=== PATIENT | male | born 1935 | race Caucasian/White ===

== ENCOUNTER 2018-07-13 08:16 | Observation (INO) | payer MEDICARE, OTHER ==
[~2018-07-13] VITALS: Ht 180.3 cm; Wt 55.4 kg
[~2018-07-13 08:16] MED LIST: ACETAMINOPHEN325 M1 PO; ASPIRIN EC81 MG PO; BUPROPION HCL100 M1 PO; BUPROPION XL150 MG PO; CENTRUM SILVER1 EAC3 PO; IBUPROFEN400 MG PO; NORCO 5-325 TA1 EACH PO; SPIRIVA18 MCG INH
[2018-07-13] MEDS ORDERED: MEMANTINE HCL5 MG PO (08:37)
[2018-07-13] MEDS ORDERED: VITAMIN D1000 UNIT PO (08:37)
[2018-07-13] MEDS ORDERED: LIPITOR10 MG PO (08:38)
--- NOTE | 2018-07-13 13:15 | NUR ---
NEW ADMIT TO THE FLOOR. PT ALERT AND ORIENTED TO PERSON/PLACE, UNABLE TO TELL ME DATE/TIME. PT ABLE TO SPEAK APPROPRIATELY. PT DENIES PAIN. HOB ELEVEATED. NEURO DEFICITS TO RIDE SIDE, WEAKNESS NOTED WELL SLIGHT SIDED FACIAL DROOP. PT DENIES NEEDS. ORIENTED PT TO CALL LIGHT AND ROOM. CALL LIGHT WITHIN REACH OF PT. PERSONAL SUPPLIES AND CALL LIGHT WITHIN REACH OF PT.
[2018-07-13] MEDS ORDERED: BUPROPION HCL100 M1 PO (14:42)
[2018-07-13] MEDS ORDERED: MEMANTINE HCL10 MG PO (14:42)
[2018-07-13] MEDS ORDERED: ACETAMINOPHEN-1 EACH PO (14:49)
--- NOTE | 2018-07-13 14:49 | NUR ---
MED REC COMPLETE
--- NOTE | 2018-07-13 16:12 | NUR ---
PT LEFT UNIT TO GO TO DI FOR A CT SCAN.
--- NOTE | 2018-07-13 16:25 | NUR ---
PT IS ALERT AND ORIENTED X2. PT IS ON RA, CPOX INTACT, SAT LEVEL 93%+. PT DENIES PAIN. PT IS 1PA WITH CANE TO CHAIR. NOTABLE RIGHT SIDED WEAKNESS/FACIAL DROOP. SPEECH INTACT AND RESPONDS APPROP. PT TOLERATING PO INTAKE. NS CONTINUOUS @ 125ML/HR. PT/OT WORKED WITH PT. FALL AT HOME THIS ADMIT. VSS. PT CONFUSED TO SITUATION AT TIMES. BED/CHAIR ALARM INTACT.
--- NOTE | 2018-07-13 17:37 | NUR ---
PT SITTING UP IN CHAIR READING NEWSPAPER. HOB ELEVATED. PT DENIES PAIN. PT TOLERATED DINNER WELL. LOWER EXT ELEVATED. CONT PULSE OX INTACT, SAT LEVEL 97% ON RA. PT DENIES NEEDS AT THIS TIME. PT DENIES NEED TO VOID. PERSONAL SUPPLIES AND CALL LIGHT WITHIN PT REACH. CHAIR ALARM INTACT.
--- NOTE | 2018-07-13 19:18 | NUR ---
SHIFT REPORT RECEIVED FROM DAY SHIFT RN IN [facility]. PT IN BED, RESPIRATIONS WNL. DR CHAVEZ IN ROOM WITH PT. CALL LIGHT WITHIN REACH.
--- NOTE | 2018-07-13 20:00 | NUR ---
PT CONFUSED, DISORIENTED TO PLACE, TIME, EVENT, ATTEMPTING TO GET OUT OF BED, STATING "I HAVE TO GO AND FIND MY ", CALLED ON THE PHONE, PT COMMUNICATED WITH , QUESTIONS ANSWERED, REASSURANCE GIVEN, THIS RN TO STAY IN ROOM WITH PT, PT NEEDS FREQUENT REORIENTATION, BED ALARM ON, FALL PRECAUTIONS IN PLACE. PT DENIES SOB, DENIES PAIN, DENIES NEED TO VOID. NO NEEDS AT THIS TIME.
--- NOTE | 2018-07-13 20:50 | EKG ---
[facility] [address] [facility] [place] [address] Signed Sinus rhythm with marked sinus arrhythmia Left axis deviation Nonspecific ST abnormality Abnormal ECG No previous ECGs available Confirmed by ELVIN CHAVEZ MD ([id number]) on 07/13/2018 8:50:24 PM Electronically Signed By: ELVIN CHAVEZ MD 07/13/182049 PATIENT NAME: PATRICA WALLACE Electrocardiogram DATE OF : 35 PHYSICIAN: ELVIN CHAVEZ MD REPORT #: [id number] REPORT IS CONFIDENTIAL AND NOT TO BE RELEASED WITHOUT AUTHORIZATION
--- NOTE | 2018-07-13 21:00 | NUR ---
PT APPEARS TO BE ASLEEP IN BED, BREATHS EVEN, UNLABORED, BED ALARM ON, FALL PRECAUTIONS IN PLACE, NO NEEDS AT THIS TIME. PT VISIBLE FROM NURSES STATION. CALL LIGHT WITHIN REACH.
--- NOTE | 2018-07-13 22:40 | NUR ---
PT AWAKE, CONFUSED, DISORIENTED TO PLACE, TIME, CONTINUES TO ASK FOR HIS , PT INCONTINENT OF URINE, PT ASSISTED TO BATHROOM WITH 2PA/FWW. ATTENDS CHANGED, BEDDING CHANGED. PT BACK TO BED NOW. CONTINUES TO ASK QUESTIONS ABOUT HIS , ATTEMPTING TO GET OUT OF BED. THIS RN IN PT'S ROOM. REORIENTATION PROVIDED, REASSURANCE GIVEN, QUESTIONS ANSWERED. BED ALARM ON. FALL PRECAUTIONS IN PLACE, NO NEEDS AT THIS TIME. IV FLUIDS INFUSING PER EMAR WNL.
--- NOTE | 2018-07-13 22:49 | NUR ---
ASSISTED PATIENT UP TO THE BATHROOM. 2PA. PATIENT HAS SOME TREMOR LIKE MOVEMENTS IN HIS ARMS, BUT LEGS ARE MOSTLY STABLE WITH SOME WEAKNESS. FWW USED WELL. PATIENT HAD LARGE SATURATED ATTENDS AND PASSED GAS. NO BM. INCONTINENCE CAUSED PATIENT A GREAT DEAL OF SHAME AND EMBARRASSMENT BUT HE MOSTLY ALLOWES STAFF TO ASSIST HIM. FRESH GOWN AND LINEN PROVIDED. PATIENT RETURNED TO BED AND IS RESTING NOW. HE FREQUENTLY ASK FOR HIS CLOTHES TO GO HOME AND IS CONCERNED ABOUT HIS . POWER AUGUSTE 1:1 WITH PATIENT TO PROVIDE REASSURANCE AND SAFETY.
--- NOTE | 2018-07-13 23:10 | NUR ---
PT 2PA WITH FWW TO BATHROOM TO VOID, AFTER PT STATES, "I NEED TO GO TO THE BATHROOM". PT ATTEMPTED TO VOID, BUT UNSUCCESSFUL. PT RETURNED TO BED, 2PA WITH FWW. BED ALARM ON, CALL LIGHT IN REACH. PT DENIES FURTHER NEEDS.
--- NOTE | 2018-07-13 23:55 | NUR ---
IN ROOM TO HANG NEW IV FLUIDS, PT APPEARS TO BE COMFORTABLY RESTING IN BED, NO NEEDS AT THIS TIME. CALL LIGHT WITHIN REACH. FALL PRECAUTIONS IN PLACE. BED ALARM ON. PT VISIBLE FROM NURSES STATION. IV FLUIDS INFUSING PER EMAR WNL.
--- NOTE | 2018-07-14 01:30 | NUR ---
PT RESTING IN BED, RR EVEN AND UNLABORED. CONTINUOUS PULSE OX IN PLACE, O2 SAT >95% ON RA. PT ALLOWED TO REST. CALL LIGHT IN REACH.
--- NOTE | 2018-07-14 02:00 | NUR ---
ASSESSMENT COMPLETE. PT ON RA, VSS. PT A/O ONLY TO SELF, REQUIRES FREQUENT REORIENTATION TO DATE, SURROUNDINGS, AND EVENTS PRIOR TO HOSPITALIZATION. PT IS RESTLESS, REQUIRES AFFIRMATION AND SITTER IN ROOM. PT IS ABLE TO FOLLOWS COMMANDS AT THIS TIME. PUPILS EQUAL, ROUND, AND REACTIVE TO LIGHT. SLIGHT RIGHT FACIAL DROOP NOTED. EQUAL BILATERAL STRENGTH IN UPPER AND LOWER EXTREMITIES. STRONG BILATERAL RADIAL AND PEDAL PULSES NOTED. SITTER VIEWING PT FROM NURSES STATION. CALL LIGHT IN REACH.
--- NOTE | 2018-07-14 03:12 | NUR ---
PT AWAKE AND SITTING IN CHAIR, POWER AUGUSTE IN ROOM SITTING WITH PT. PT A/O TO SELF, REQUIRES FREQUENT REORIENTATION TO PLACE AND EVENTS LEADING TO HOSPITALIZATION. CALL LIGHT IN REACH, CHAIR ALARM IN PLACE.
--- NOTE | 2018-07-14 04:00 | NUR ---
PT CONTINUES TO BE RESTLESS, CONFUSED, ORIENTED TO SELF, NOT ORIENTED TO PLACE, TIME, OR EVENT, CONTINUES TO ATTEMPT TO GET OUT OF BED, PT REORIENTED FREQUENTLY, REASSURANCE GIVEN. CONTACTED BY FERNIE AUGUSTE OF PT'S CONFUSION/AGITATION. NEW ORDERS, SEE EMAR. PRN MEDICATION GIVEN PER ORDER. PT IN BED, BED ALARM ON, PT VISIBLE FROM NURSES STATION. CALL LIGHT WITHIN REACH. NO NEEDS AT THIS TIME. IV FLUIDS INFUSING PER EMAR WNL.
--- NOTE | 2018-07-14 06:00 | NUR ---
PT'S VSS, PT APPEARS TO BE RESTING COMFORTABLY, BREATHS EVEN, UNLABORED, PT INCONTINENT OF URINE, NEW ATTENDS PLACED, BEDDING/GOWN CHANGED, BED ALARM ON, PT REMAINS CONFUSED/ DISORIENTED TO TIME/PLACE. REORIENTATION PROVIDED, REASSURANCE GIVEN, PT VISIBLE FROM NURSES STATION. ON TELE #1, ON RA, NO C/O PAIN OR SOB. NO NEEDS AT THIS TIME. FALL PRECAUTIONS IN PLACE. CALL LIGHT WITHIN REACH.
--- NOTE | 2018-07-14 06:00 | NUR ---
ASSESSMENT COMPLETE, NO NEW CHANGES NOTED FROM PREVIOUS ASSESSMENT. LUNG SOUNDS CLEAR, DIMINISHED IN THE BASES BILATERALLY. O2 SAT 94% ON RA. S1 AND S2 NOTED, HR OF 80 BPM. PT FINALLY RESTING IN BED, RR EVEN AND UNLABORED. ORIENTATION NOT ASSESSED AT THIS TIME, PT ALLOWED TO REST. CALL LIGHT IN REACH.
--- NOTE | 2018-07-14 06:36 | NUR ---
PATIENT SLEPT A TOTAL OF 2 HOURS THROUGHOUT THE SHIFT. PRN VALUIM GIVEN X2 DUE TO INCREASED AGITATION. PATIENT HAS BEEN 1:1 THROUGHT THE NIGHT, FREQUENTLY CONFUSED AND ANXIOUS. NERUO STATUS REMAINS UNCHANGED. ORIENTED TO SELF ONLY, TRISHA STRONG JOB SETTER STRENGTH WITH NO UNILATERAL DEFICITS NOTED. POOR COORDINATION AND PATIENT NOT STEADY ON HIS FEET. 2PA W/FWW. VS WNL. TELE 1, HR IRREGULAR 80-100. INCONTINENT AT BASELINE. TOLERATING THIN LIQUIDS. IV FLUIDS @ 125.
--- NOTE | 2018-07-14 08:01 | NUR ---
RECIEVED BEDSIDE REPORT FROM SARA, RNS AT SHIFT CHANGE. PT IN BED, EYES CLOSED, BUT MOVING AROUND IN BED.
--- NOTE | 2018-07-14 09:30 | NUR ---
RECIEVED CALL FROM PTS SON SIENA WALLACE. STATED HE WILL BE FLYING IN [employer] TO HELP PARENTS. FORWARDED CALL TO TEENA IN DISCHARGE PLANNING.
--- NOTE | 2018-07-14 09:40 | NUR ---
PTS NURSE CAME TO THE OFFICE STATED THE SON WOULD LIKE TO TALK TO ME AND WOULD I CALL HIM AROUND 1100 TODAY. TOLD THE NURSE THAT WOULD BE FINE.
--- NOTE | 2018-07-14 09:45 | NUR ---
PT SON SIENA CALLED VOICING CONCERNS ABOUT HIS FATHER GOING HOME WITH HIS MOTHER ALONE AND WANTING US TO KEEP THIS PT UNTIL SOMETIME TOMORROW HE IS NOT IN TOWN AND HAS TO FLY INTO TOWN AND FIGURE OUT WHAT TO DO WITH DAD THEN HE WOULD COME UP TOMORROW. I EXPLAINED TO HIM THAT THE DR STATED HE IS READY FOR DC HOME TODAY HE IS AT HIS BASELINE AND HAS NO MEDICALLY NECESSITY TO STAY IN THE HOSPITAL. HE SAID HIS COULD COME AND STAY WITH THEM UNTIL HE COULD GET HOME. I SAID THAT WOULD BE FINE AND THAT WE WOULDN'T DC PT WITHOUT SOMEONE BEING THERE TO HELP HIS CARE FOR HIM TODAY. WE ALSO DISCUSSED THE DIFFERENT OPTIONS FOR CARE FOR HIM HE IS NOT IN NEED OF CONTINUAL SKILLED NEEDS. HE STATED HE KNEW СВЕТЛАНА WHO HAS AN ASSISTED LIVING FACILITY [place] HE STATES HE IS A REALLY GOOD FRIEND OF HIS. MIREYA ALSO STATES TO ME THAT HE HAS BEEN WATCHING HIS PARENTS DECLINE FOR THE LAST 7 OR SO YEARS AND KNEW THIS TIME WAS COMING. WE TALKED ABOUT ASSISTED LIVING FACILITIES AND ADULT FOSTER HOMES AND PRIVATE CAREGIVERS FOR AROUND THE CLOCK CARE AND SOME REFERENCES TO OBTAIN THESE THINGS. HE STATED HE NEEDED TO GET OFF THE PHONE SO HE COULD MAKE ARRANGEMENTS TO FLY HOME TODAY. GAVE HIM MY OFFICE PHONE NUMBER AND TOLD HIM I WOULD BE GLAD TO HELP IN ANY WAY I CAN WITHIN MY LIMITS. HE REQUESTED TO TALK TO STEPHANIE AGAIN, SO I TRANSFERED HIM TO HER.
--- NOTE | 2018-07-14 10:13 | NUR ---
PT IN BED, SITTING UP, ALERT, ORIENTED TO SELF, TO WHO IS IN ROOM. WAS ABLE TO TELL ME THE NAMES OF HIS CHILDREN, BUT WAS UNABLE TO TELL ME WHERE HE IS, WHAT THE YEAR, MONTH, OR DAY IS. CONFUSED REGARDING EVENTS, REORIENTED PT. PT PLEASANT AT THIS TIME. COOPERATIVE WITH CARES. HAS TRUNG PERSAUD SITTING WITH HIM FOR CLOSE OBSERVATION. NO AGITATION OR SIGNS OF ANXIETY NOTED AT THIS TIME. PT HAD TAKEN SHOWER, AND ATE 50% OF BREAKFAST. IN ROOM AT THIS TIME.
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
--- NOTE | 2018-07-14 10:45 | NUR ---
MET WITH KAREN WOOD FROM PT, AND MYSELF, AND STUDENT OF PT REGARDING WHAT IS NEEDED FOT PT. KAREN STATES HE WOULD BENEFIT FROM SNF PLACEMENT BUT THEN EXPLAINED TO HER THAT THE SNF CARE WOULD HAVE TO BE PRIVATE PAY THERE IS NO CRITERIA FOR PT TO BE ADMITTED INPT TO THE HOSPITAL. HE IS AT HIS BASELINE AT THIS POINT IN TIME AND THERE IS NO MEDICAL NECESSITY FOR THE PT TO REMAIN IN THE HOSPITAL. KAREN ALSO STATED THAT HE WOULD BENEFIT FROM A FRONT WHEELED WALKER, WHICH DR CHAVEZ STATED SHE WOULD WRITE A SCRIPT FOR THAT AND I WOULD GET IT SENT OFF AFTER SPEAKING WITH THE PT TO SEE IF THEY ALREADY HAD ONE.
--- NOTE | 2018-07-14 11:00 | NUR ---
REFERRAL MADE TO [facility] FOR ASSISTANCE, RESOURCES FOR THE FAMILY FOR IN HOME CARE OR PLACEMENT, FEELS SHE IS NO LONGER ABLE TO CARE FOR PT AND HIS ADLS ALONE.
--- NOTE | 2018-07-14 11:10 | NUR ---
AFTER TALKING WITH PT FEBRUARY, I FAXED CLINICALS OUT TO [facility] FOR A FRONT WHEELED WALKER FOR HIS SAFETY. FAXED FACE SHEET, ER NOTES AND SUMMARY. H AND P, PT EVAL AND NOTES, AND ORDER FOR WALKED TO [facility]. TALKED WITH AME ABOUT THIS AND SHE SAID SOON PROCESSED AND SHE HAD A BUTTONHOLE FACER SHE WOULD HAVE IT DELIVERED HERE. RECIEVED A FAX CONFIRMATION OF THIS.
[2018-07-14] MEDS ORDERED: LO-DOSE ASPIRIN81 M1 PO (11:59)
--- NOTE | 2018-07-14 12:17 | NUR ---
PATIENT SITTING IN CHAIR EATING LUNCH HAPPILY. CHAIR ALARM IS ON. SAFETY MEASURES IN PLACE ARE CHAIR ALARM WHEN IN CHAIR, BED ALARM WHEN IN BED, TWO PERSON ASSIST, SITTER, CALL LIGHT WITHIN REACH, BED RAILS UP WHEN IN BED, GATE BELT WHEN TRANSFERING FROM BED TO CHAIR AND BACK.
--- NOTE | 2018-07-14 12:28 | NUR ---
ATTEMPTED TO VISIT PT-RN AND STUDENT BUSY WITH PT. WILL CHECK BACK AGAIN
--- NOTE | 2018-07-14 12:29 | NUR ---
PT SITTING UP IN RECLINER, ATE 75% OF LUNCH, TOLERATED WELL. PERSONAL SUPPLIES AND CALL BUTTON IN REACH. PT DENIED NEEDS. PLEASANT, COOPERATIVE.
--- NOTE | 2018-07-14 12:33 | NUR ---
PT WAS COOPERATIVE AND WORKED WITH THERAPY, CONF HELD, DECISION MADE TO DC HOME. [id number] YNES WILL BE COMING OVER TO STAY WITH PT AND AFTER DC. CALL PLACED TO SIENA-SON AND MSG LEFT FOR HIM TO RETURN CALL. IS HERE AND TALKING WITH DC CABLE WORKER HELPER. SHE DOES NOT KNOW OR HAVE A NUMBER FOR YNES.
--- NOTE | 2018-07-14 12:40 | NUR ---
TALKED WITH PT IN THE ROOM, SHE IS QUESTIONING WHAT ARE THEIR OPTIONS FAR GETTING HIM HELP, WE TALKED ABOUT HIM IDEALLY NEEDING 24 HOUR CARE WHETHER THAT BE AT HOME OR IN A FACILITY, MEDICARE DOES NOT COVER PAYMENT IN ASSISTED LIVING OR ADULT FOSTER HOMES, MEMORY CARE TYPE FACILITIES. THESE WOULD BE EITHER PRIVATE PAY OR MEDICAID AND IF THEY WERE GOING TO BE USING THE MEDICAID ROUTE IT CAN TAKE UP TO 6+ WEEKS TO GET THAT ESTABLISHED. ALSO STATED THAT WE WERE GOING TO BE HAVING HOME HEALTH COME IN AND WORK WITH ART AT LEAST 2 TIMES A WEEK UNTIL THEY CAN GET ARRANGEMENTS FOR HIM MADE. WE ALSO DISCUSSED HIM USING THE WALKER THIS WILL BE SAFER FOR HIM THAN THE CANE. SHE DENIED FURTHER QUESTIONS AT THIS TIME. TOLD HER NO HURRY ON GETTING HIM DC'D, WE WOULD WAIT FOR A FMAILY MEMBER TO GET HERE TO HELP HER CARE FOR HIM.
--- NOTE | 2018-07-14 13:00 | NUR ---
FAXED CHART NOTED INCLUDING FACE SHEE, ER NOTES AND SUMMARY, H AND P, PT AND OT EVAL AND NOTES, DC SUMMARY TO [facility]. RECIEVED FAX CONFIRMATION OF THIS.
--- NOTE | 2018-07-14 14:09 | NUR ---
PT'S DAUGTHER STEPHANIE CALLED FLOOR, SPOKE WITH THIS RN. PT'S DAUGHTER STATED THAT SHE IS DRIVING HERE FROM [place], AND SHOULD BE HERE IN APROXIMATELY 5 HOURS. STEPHANIE, DAUGHTER, EXPRESSED CONCERN ABOUT HER MOTHER DISCHARGING PT TO HOME WITHOUT WAITING FOR HER TO ARRIVE. SHE EXPRESSED CONCERN REGARDING THE SAFETY OF THIS. PT'S IS NOT HERE AT THIS TIME, PT IS STILL HERE, SAFE, AND HAS NOT EXPRESSED DESIRE TO DISCHARGE PT WITHOUT OTHER FAMILY HERE.
--- NOTE | 2018-07-14 14:10 | NUR ---
RECIEVED PHONE CALL FROM PT DAUGHTER STEPHANIE COTTO, SHE IS CONCERNED ABOUT US DC'ING HER FATHER WITH HER MOTHER ALONE, TOLD HER WE WERE NOT PLANNING ON DOING THAT AND THAT WE WERE AWAITING PANIAGUA HE HAD SAID SHE WOULD BE COMING OVER TO [place] AND PT TO BE WITH THEM UNTIL OTHER FAMILY MEMBERS COULD GET HERE SO THEY WERE NOT LEFT ALONE WITH HER TO CARE FOR HIM SHE IS NO LONGER ABLE TO PROVIDE FULL CARE FOR HIM. SALO STATED IT IS JUST TO HARD FOR HER ANYMORE TO CARE FOR HIM. STEPHANIE ASKED ME ABOUT PUTTING HIM IN A FACILITY AND I EXPLAINED THE NEED FOR QUALIFYING MEDICAL STAYS AND RIGHT NOW HE DOES NOT HAVE THAT AND THEREFORE IF HE WERE TO GO TO A USP IT WOULD HAVE TO BE PRIVATE PAY, ALSO EXPLAINED THAT I HAD TALKED TO SIENA AND HAD GIVEN HIM ALOT OF DIFFERENT OPTIONS FOR WHERE THEY MAY BE ABLE TO FIND PLACEMENT, ALSO NOTED THAT IT MAY TAKE SEVERAL DAYS TO WEEKS TO LOCATE A FACILITY FOR HIM TO STAY IN AND THAT HE WOULD NOT BE ABLE TO STAY HERE FOR THAT TIME PERIOD. GAVE HER WBT PHONE NUMBER. SHE THEN STATED SHE WOULD BE HERE IN 5 OR SO HOURS. PHONE NUMBER IS [phone] FOR STEPHANIE COTTO.
--- OUTSIDE RECORDS SUMMARY | 2018-07-14 14:16 | XMS | Clinical Summary ---
Demographics + + + | Address | [address] | | | [place] [address] | + + + | Home Phone | | + + + | Preferred Language | Unknown | + + + | Marital Status | | + + + | Christian Affiliation | 1077 | + + + | Race | Unknown | + + + | Ethnic Group | Unknown | + + + Author + + + | Author | [facility] | + + + | Organization | [facility] | + + + | Address | Unknown | + + + | Phone | Unavailable | + + + Support + + +---------+ + | Name | Relationship | Address | Phone | + + +---------+ + | Nichole Snyder | ECON | Unknown | | + + +---------+ + Care Team Providers + +------+ + | Care Fur Repairer Name | Role | Phone | + +------+ + | Mago Light PA-C | PP | | + +------+ + Allergies No Known Allergies Current Medications + + +--------+---------+------+------+-------+ | Prescription | Sig. | Disp. | Refills | Star | End | Statu | | | | | | t | Date | s | | | | | | Date | | | + + +--------+---------+------+------+-------+ | buPROPion | Take 100 mg by mouth | | | | | Activ | | (WELLBUTRIN) 100 MG | 2 (two) times | | | | | e | | tablet | daily. | | | | | | + + +--------+---------+------+------+-------+ | Misc Natural | Take 1 tablet by | | | | | Activ | | Products (URINOZINC | mouth every morning. | | | | | e | | PO) | Urinozinc Prostate | | | | | | | | Health Formula | | | | | | + + +--------+---------+------+------+-------+ | Multiple | Take 1 tablet by | | | | | Activ | | Vitamins-Minerals | mouth every morning. | | | | | e | | (MENS MULTIVITAMIN | Men's Health | | | | | | | PLUS PO) | Formula | | | | | | + + +--------+---------+------+------+-------+ | atorvastatin | Take 1 tablet by | 30 | 0 | 03/2 | | Activ | | (LIPITOR) 10 MG | mouth nightly. | tablet | | 8/20 | | e | | tablet | | | | 16 | | | + + +--------+---------+------+------+-------+ Active Problems + + + | Problem | Noted Date | + + + | Tricuspid regurgitation | 12/08/2015 | + + + | Depression | 12/08/2015 | + + + | Closed fracture of nasal bone | 12/07/2015 | + + + | Subarachnoid hemorrhage (HCC) | 12/07/2015 | + + + | Fall from standing | 12/07/2015 | + + + | History of TIA (transient ischemic attack) | 12/07/2015 | + + + | Tobacco use disorder | 12/07/2015 | + + + | cognitive impairment | 12/07/2015 | + + + Social History + +-------+ +--------+------+ | Tobacco Use | Types | Packs/Day | Years | Date | | | | | Used | | + +-------+ +--------+------+ | Current Every Day | | 1 | | | | Smoker | | | | | + +-------+ +--------+------+ + + | Tobacco Cessation: Counseling Given: Yes | | Comments: says he would be ready | + + + + +---------+ + | Alcohol Use | Drinks/We | oz/Week | Comments | | | ek | | | + + +---------+ + | Yes | | | occasionally | + + +---------+ + + + + | Sex Assigned at | Date Recorded | | | | + + + | Not on file | | + + + Last Filed Vital Signs + + + + | Vital Sign | Reading | Time Taken | + + + + | Blood Pressure | 149/83 | 12/08/2015 7:59 AM PDT | + + + + | Pulse | 64 | 12/08/2015 7:59 AM PDT | + + + + | Temperature | 36.8 C (98.2 F) | 12/08/2015 7:59 AM PDT | + + + + | Respiratory Rate | 18 | 12/08/2015 7:59 AM PDT | + + + + | Oxygen Saturation | 94% | 12/08/2015 7:59 AM PDT | + + + + | Inhaled Oxygen | - | - | | Concentration | | | + + + + | Weight | 57.5 kg (126 lb 12.2 | 12/08/2015 3:11 AM PDT | | | oz) | | + + + + | Height | 182.9 cm (6') | 12/07/2015 5:28 AM PDT | + + + + | Body Mass Index | 17.19 | 12/08/2015 3:11 AM PDT | + + + + Plan of Treatment + + + + + | Health Maintenance | Due Date | Last Done | Comments | + + + + + | Vaccine: | | | | | Dtap/Tdap/Td (1 - | 4 | | | | Tdap) | | | | + + + + + | Vaccine: Zoster (1 | | | | | of 2) | 5 | | | + + + + + | Vaccine: | | | | | Pneumococcal 65+ | 0 | | | | Low/Medium Risk (1 | | | | | of 2 - PCV13) | | | | + + + + + | Vaccine: Influenza | | | | | (#1) | 8 | | | + + + + + Results Not on filefrom Last 3 Months Insurance + +--------+ +------+-------+ + | Payer | Benefi | Subscriber | Type | Phone | Address | | | t Plan | ID | | | | | | / | | | | | | | Group | | | | | + +--------+ +------+-------+ + | MEDICARE | MEDICA | [id number] | | | [address] | | | RE | | | | [place] [phone] | | | IP-OP | | | | | + +--------+ +------+-------+ + | AETNA | AETNA | [id number] | | | | | | GENERI | | | | | | | C | | | | | + +--------+ +------+-------+ + + +--------+ +--------+ + + | Guarantor Name | Accoun | Relation to | Date | Phone | Billing Address | | | t Type | Patient | of | | | | | | | | | | + +--------+ +--------+ + + | MAXIMUS SNYDER | Person | Self [birth year] Home: | [address] | | | al/Fam | | 1935 | [phone] [place] | | | je[place] | | | [phone] | [phone] | + +--------+ +--------+ + +"
--- OUTSIDE RECORDS SUMMARY | 2018-07-14 14:17 | XMS | Clinical Summary ---
Demographics + + + | Address | [address] | | | [place] [address] | + + + | Home Phone | | + + + | Preferred Language | Unknown | + + + | Marital Status | | + + + | Sikhism Affiliation | Unknown | + + + | Race | Unknown | + + + | Ethnic Group | Unknown | + + + Author + + + | Author | [facility] | | | and [place] | + + + | Organization | [facility] | | | and [facility] | + + + | Address | Unknown | + + + | Phone | Unavailable | + + + Support + + +---------+ + | Name | Relationship | Address | Phone | + + +---------+ + | Nichole Snyder | ECON | Unknown | | + + +---------+ + Care Team Providers + +------+ + | Care Vp Information Technology Name | Role | Phone | + +------+ + PP | Unavailable | + +------+ + Allergies No Known Allergies Current Medications + + +-------+---------+------+------+-------+ | Prescription | Sig. | Disp. | Refills | Star | End | Statu | | | | | | t | Date | s | | | | | | Date | | | + + +-------+---------+------+------+-------+ | Multiple | 1 by mouth daily | | | 05/13 | | Activ | | Vitamins-Minerals | | | | 12/30 | | e | | (CENTRUM SILVER | | | | 12 | | | | ULTRA MENS) TABS | | | | | | | + + +-------+---------+------+------+-------+ | aspirin (ADULT | Take 81 mg by mouth | | | 05/13 | | Activ | | ASPIRIN EC LOW | Daily. | | | 12/30 | | e | | STRENGTH) 81 MG EC | | | | 12 | | | | tablet | | | | | | | + + +-------+---------+------+------+-------+ | buPROPion | Take 100 mg by mouth | | | 05/13 | | Activ | | (BUDEPRION SR) 100 | 2 times daily. | | | 12/30 | | e | | mg 12 hr tablet | | | | 12 | | | + + +-------+---------+------+------+-------+ Active Problems + + + | Problem | Noted Date | + + + | OTHER DYSPHAGIA | 01/06/2012 | + + + Social History + +-------+ +--------+------+ | Tobacco Use | Types | Packs/Day | Years | Date | | | | | Used | | + +-------+ +--------+------+ | Never Assessed | | | | | + +-------+ +--------+------+ + + + | Sex Assigned at | Date Recorded | | | | + + + | Not on file | | + + + Plan of Treatment + [...] filefrom Last 3 Months Insurance + +--------+ +--------+ +---------+ | Payer | Benefi | Subscriber | Type | Phone | Address | | | t Plan | ID | | | | | | / | | | | | | | Group | | | | | + +--------+ +--------+ +---------+ | MEDICARE | MEDICA | [id number] | Medica | [phone] | | | RE | | re | [phone] | | | | PART A | | | | | | | AND B | | | | | + +--------+ +--------+ +---------+ + +--------+ +--------+ + + | Guarantor Name | Accoun | Relation to | Date | Phone | Billing Address | | | t Type | Patient | of | | | | | | | | | | + +--------+ +--------+ + + | MAXIMUS SNYDER | Person | Self [birth year] Home: | [address] | | | al/Fam | | 1935 | [phone] [place] [address] | | | [place] | | | [phone] | | + +--------+ +--------+ + +"
--- OUTSIDE RECORDS SUMMARY | 2018-07-14 14:17 | XMS | Clinical Summary ---
Demographics + + + | Address | [address] | | | [place] [address] | + + + | Home Phone | | + + + | Preferred Language | Unknown | + + + | Marital Status | | + + + | [employer] Affiliation | 1077 | + + + | Race | Unknown | + + + | Ethnic Group | Unknown | + + + Author + + + | Author | [facility] | + + + | Organization | [facility] | + + + | Address | Unknown | + + + | Phone | Unavailable | + + + Support + + +---------+ + | Name | Relationship | Address | Phone | + + +---------+ + | Nichole Snyder | ECON | Unknown | | + + +---------+ + Care Team Providers + +------+ + | Care Senior Accounting Manager Name | Role | Phone | + [...] +------+-------+ + | MEDICARE | MEDICA | [id number] | | | [address] | | | RE | | | | [place] [phone] | | | IP-OP | | | | | + +--------+ +------+-------+ + | AETNA | AETNA | [id number] | | | | | | GENERI [...] | [place] | | | [phone] | [phone] | + +--------+ +--------+ + +"
--- OUTSIDE RECORDS SUMMARY | 2018-07-14 14:17 | XMS | Clinical Summary ---
Demographics + + + | Address | [address] | | | [place] [address] | + + + | Home Phone | | + + + | Preferred Language | Unknown | + + + | Marital Status | | + + + | Moravian Affiliation | 1077 | + + + | Race | Unknown | + + + | Ethnic Group | Unknown | + + + Author + + + | Author | [facility] | + + + | Organization | [facility] | + + + | Address | Unknown | + + + | Phone | Unavailable | + + + Support + + +---------+ + | Name | Relationship | Address | Phone | + + +---------+ + | Nichole Snyder | ECON | Unknown | | + + +---------+ + Care Team Providers + +------+ + | Care Supervisor Inspection And Testing Name | Role | Phone | + [...] +------+-------+ + | MEDICARE | MEDICA | [id number] | | | [address] | | | RE | | | | [place] [address] | | | IP-OP | | | | | + +--------+ +------+-------+ + | AETNA | AETNA | [id number] | | | | | | GENERI [...] | [place] | | | [phone] | [phone] | + +--------+ +--------+ + +"
--- OUTSIDE RECORDS SUMMARY | 2018-07-14 14:17 | XMS | Clinical Summary ---
Demographics + + + | Address | [address] | | | [place] [address] | + + + | Home Phone | | + + + | Preferred Language | Unknown | + + + | Marital Status | | + + + | Anabaptism Affiliation | Unknown | + + + | Race | Unknown | + + + | Ethnic Group | Unknown | + + + Author + + + | Author | [facility] | | | and [place] | + + + | Organization | [facility] | | | and Isaiahana [...] Team Providers + +------+ + | Care Utilization Supervisor Name | Role | Phone | + [...] +--------+ +---------+ | MEDICARE | MEDICA | [id number] | Medica | [phone] | | [...] | 1935 | [phone] | [place] [address] | | | [place] | | | [phone] | | + +--------+ +--------+ + +"
--- OUTSIDE RECORDS SUMMARY | 2018-07-14 14:17 | XMS | Clinical Summary ---
Demographics + + + | Address | [address] | | | [place] [address] | + + + | Home Phone | | + + + | Preferred Language | Unknown | + + + | Marital Status | | + + + | Muslim Affiliation | Unknown | + + + | Race | Unknown | + + + | Ethnic Group | Unknown | + + + Author + + + | Author | [facility] | | | and [place] | + + + | Organization | [facility] | | | and [place] | [...] Team Providers + +------+ + | Care Jacquard Twine Polisher Operator Name | Role | Phone | + [...] +--------+ +---------+ | MEDICARE | MEDICA | [id number] | Medica | [phone] | | [...] | 1935 | [phone] | [place] [address] | | | [place] | | | [phone] | | + +--------+ +--------+ + +"
--- NOTE | 2018-07-14 15:15 | NUR ---
PATIENT WAS RESTLESS AFTER THERPHY. SO WENT WENT FOR A RIDE TO LOBBY SAT IN FROUNT OF THE FIRE PLACE, THAN WE RETURNED TO ROOM, PATIENT IS NOW IN HIS CHAIR. IS IN THE ROOM. WITH PATIENT. CALL LIGHT IN REACH, FRESH WATER GIVEN.
--- NOTE | 2018-07-14 15:25 | NUR ---
AFTER HAVING HAD THE CONVERSATION WITH THE DAUGHTER STEPHANIE ABOUT [facility] AND PRIVATE PAY THERE, I CALLED AND TALKED TO THE SMELTING ENGINEER AND SHE STATED THAT INDEED THEY WOULD HAVE A BED AVAILABLE FOR A MALE PT AND ASKED IF I WOULD SEND CLINICALS INCLUDING NURSES NOTES TO THEM FOR THEIR DNS TO REVIEW. SENT VIA FAX FACE SHEET, ER NOTES AND SUMMARY, H AND P, DC SUMMARY, PT AND OT EVALS AND NOTES, AND NURSES NOTES. RECIEVED FAX CONFIRMATION.
--- NOTE | 2018-07-14 15:42 | NUR ---
FAMILY CONTACTS [phone] [id number]-[phone] [facility] [phone] STEPHANIE- [phone]
--- NOTE | 2018-07-14 16:10 | NUR ---
RECIEVED A PHONE NOTIFICATION FROM [facility] THAT THEY WOULD NOT BE ABLE TO ACCEPT THIS PT THEY DO NOT HAVE ENOUGH STAFF TO HAVE THE PT WATCHED CLOSLEY AT NIGHT. TOLD THEM I WOULD NOTIFY THE DAUGHTER.
--- NOTE | 2018-07-14 16:23 | NUR ---
CALLED AND SPOKE WITH STEPHANIE THE DAUGHTER. TOLD HER WHAT [facility] HAD SAID TO ME AND THAT THEY COULD NOT TAKE HIM. SHE STATED SHE WAS APPRECIATIVE OF THE ATTEMPT TO ASSIST WITH PLACEMENT. SHE STATED [place] IS AT [place] AND SHOULD BE HERE IN A FEW HOURS.
--- NOTE | 2018-07-14 16:32 | NUR ---
PT IN ROOM, SITTING UP IN RECLINER. SIENA, PT'S SON CALLED, STATED THAT HE IS AT THE [employer], ATTEMPTING TO GET A FLIGHT TO [place]. EXPRESSED THAT HE DOES NOT WANT HIS FATHER RELEASED UNTIL HE, HIS , OR HIS SISTER STEPHANIE ARRIVED TO GO HOME WITH PT, FOR SAFETY. PT'S HAS NOT EXPRESSED DESIRE TO TAKE PT HOME WITHOUT WAITING FOR HER FAMILY TO ARRIVE. PT IS IN ROOM, SAFE, TRUNG PERSAUD IN ROOM.
--- NOTE | 2018-07-14 17:53 | NUR ---
PT HAS HAD A DEDICATED STAFF DUE TO ELEVATED FALL RISK, CONFUSION AT BASELINE, UNSTEADINESS AND LACK OF BALANCE AT BASELINE. PER FAMILY, PT HAS FALLS AT HOME FREQUENTLY WHEN WALKING WITH CANE. PT WORKED WITH PHYSICAL THERAPY THIS SHIFT, AMBULATED IN HALLS WITH FWW WITH 1 PERSON ASSIST WITH 1 PERSON FOLLOWING WITH W/C. PT ALERT, ORIENTED TO SELF, TO , DISORIENTED TO EVENTS, SURROUNDINGS, PLACE, DATE. REORIENTED FREQUENTLY. PT PLEASANT AND COOPERATIVE WITH CARES. NO RESIDUAL DEFECITS NOTED, APPEARS TO BE AT HIS BASELINE COGNITIVE AND PHYSICAL LEVELS. PLAN IS FOR PT TO DISCHARGE TO HOME WITH FAMILY ONCE HIS DAUGHTER STEPHANIE, HIS SON SIENA, OR HIS DAUGHTER IN LAW ARRIVES THIS EVENING. PT CURRENTLY IN HALLS BEING PUSHED IN W/C BY TRUNG PERSAUD FOR CHANGE OF SCENERY.
--- NOTE | 2018-07-14 18:44 | NUR ---
NOTIFIED DR. HOLDEN OF PT'S PULSE OF 121, AND THAT AT THE TIME PT HAD JUST BEEN ACTIVE, GETTING ATTENDS CHANGED WITH ASSIST FROM CNAs, AND EXCITED REGARDING SEEING DAUGHTER, AND PENDING DISCHARGE TO HOME AT TIME VS WERE ASSESSED. PT'S BP WAS ALSO ELEVATED, 140/88, AND DR. HOLDEN NOTIFIED OF THIS. DR. HOLDEN STATED THAT THESE WERE NOT AN ISSUE WITH PT'S DISCHARGE.
== END 2018-07-14 18:30 | disposition home health service (06) ==
LOC: ED 08:16 → MS 08:17
PROVIDERS: ADMIT Internal Medicine
DX: G45.9 Transient cerebral ischemic attack, unspecified (principal); M62.82 Rhabdomyolysis; R29.810 Facial weakness; R91.1 Solitary pulmonary nodule; F17.210 Nicotine dependence, cigarettes, uncomplicated; R40.2362 Coma scale, best motor response, obeys commands, at arrival to emergency department; R40.2142 Coma scale, eyes open, spontaneous, at arrival to emergency department; R40.2242 Coma scale, best verbal response, confused conversation, at arrival to emergency department; J44.9 Chronic obstructive pulmonary disease, unspecified; F03.90 Unspecified dementia, unspecified severity, without behavioral disturbance, psychotic disturbance, mood disturbance, and anxiety; R26.81 Unsteadiness on feet; Z91.81 History of falling; Z79.891 Long term (current) use of opiate analgesic; Z79.899 Other long term (current) drug therapy
CPT/HCPCS: 36415; 70450; 71045; 71260; 74160; 80048; 80053; 81001; 82550; 83735; 84484; 85025; 93005; 93010; 96360; 96361; 96372; 97116; 97162; 97166; 97530; 99285; G0378; G8978; G8979; G8980; J1650; J7030; Q9967

== ENCOUNTER 2018-07-15 11:39 | Emergency (ER) | payer MEDICARE, OTHER ==
[~2018-07-15] VITALS: Ht 180.3 cm; Wt 55.4 kg
--- OUTSIDE RECORDS SUMMARY | ~2018-07-15 | XMS | Clinical Summary ---
Demographics + + + | Address | [address] | | | [place] [address] | + + + | Home Phone | | + + + | Preferred Language | Unknown | + + + | Marital Status | | + + + | Zoroastrian Affiliation | Unknown | + + + | Race | Unknown | + + + | Ethnic Group | Unknown | + + + Author + + + | Author | [facility] | | | and [place] | + + + | Organization | [facility] | | | and [...] Team Providers + +------+ + | Care Technology Applications Consultant Name | Role | Phone | + [...] +--------+ +---------+ | MEDICARE | MEDICA | [id number] | Medica | [phone] | | [...] | 1935 | [phone] | [place] [address] | | | [place] | | | [phone] | | + +--------+ +--------+ + +"
--- OUTSIDE RECORDS SUMMARY | ~2018-07-15 | XMS | Clinical Summary ---
Demographics + + + | Address | [address] | | | [place] [address] | + + + | Home Phone | | + + + | Preferred Language | Unknown | + + + | Marital Status | | + + + | Rastafarian Affiliation | 1077 | + + + | Race | Unknown | + + + | Ethnic Group | Unknown | + + + Author + + + | Author | [facility] | + + + | Organization | [facility] | + + + | Address | Unknown | + + + | Phone | Unavailable | + + + Support + + +---------+ + | Name | Relationship | Address | Phone | + + +---------+ + | Nichole Snyder | ECON | Unknown | | + + +---------+ + Care Team Providers + +------+ + | Care Sander Machine Name | Role | Phone | + [...] +------+-------+ + | MEDICARE | MEDICA | [id number] | | | [address] | | | RE | | | | [place] [phone] | | | IP-OP | | | | | + +--------+ +------+-------+ + | AETNA | AETNA | [id number] | | | | | | GENERI [...] | [place] | | | [phone] | [phone] | + +--------+ +--------+ + +"
--- OUTSIDE RECORDS SUMMARY | ~2018-07-15 | XMS | Clinical Summary ---
Demographics + + + | Address | [address] | | | [place] [address] | + + + | Home Phone | | + + + | Preferred Language | Unknown | + + + | Marital Status | | + + + | Synagogue Affiliation | Unknown | + + + | Race | Unknown | + + + | Ethnic Group | Unknown | + + + Author + + + | Author | [facility] | | | and [place] | + + + | Organization | [facility] | | | and [place] [...] Team Providers + +------+ + | Care Clay House Worker Name | Role | Phone | + [...] +--------+ +---------+ | MEDICARE | MEDICA | [id number] | Medica | [phone] | | [...] | 1935 | [phone] | [place] [address] | | | [place] | | | [phone] | | + +--------+ +--------+ + +"
--- OUTSIDE RECORDS SUMMARY | ~2018-07-15 | XMS | Clinical Summary ---
Demographics + + + | Address | [address] | | | [place] [address] | + + + | Home Phone | | + + + | Preferred Language | Unknown | + + + | Marital Status | | + + + | Cheondoism Affiliation | 1077 | + + + | Race | Unknown | + + + | Ethnic Group | Unknown | + + + Author + + + | Author | [facility] | + + + | Organization | [facility] | + + + | Address | Unknown | + + + | Phone | Unavailable | + + + Support + + +---------+ + | Name | Relationship | Address | Phone | + + +---------+ + | Nichole Snyder | ECON | Unknown | | + + +---------+ + Care Team Providers + +------+ + | Care Interventional Pain Physician Name | Role | Phone | + [...] +------+-------+ + | MEDICARE | MEDICA | [id number] | | | [address] | | | RE | | | | [place] [address] | | | IP-OP | | | | | + +--------+ +------+-------+ + | AETNA | AETNA | [id number] | | | | | | GENERI [...] | + +--------+ +--------+ + + | MXAIMUS SNYDER | Person | Self [birth year] Home: | [address] | | | al/Fam | | 1935 | [phone] | [place] | | | [place] | | | [phone] | [phone] | + +--------+ +--------+ + +"
[~2018-07-15 11:39] MED LIST changes: +ACETAMINOPHEN-1 EACH PO; +LIPITOR10 MG PO; +LO-DOSE ASPIRIN81 M1 PO; +MEMANTINE HCL10 MG PO; +MEMANTINE HCL5 MG PO; +VITAMIN D1000 UNIT PO
--- OUTSIDE RECORDS SUMMARY | 2018-07-15 11:44 | XMS ---
PreManage Notification: PATRICA WALLACE Security Custom Van Converter Events No recent Security Events currently on file CRITERIA MET - [facility] - 2 Visits in 30 Days CARE PROVIDERS Johnny Desai MD Primary Care Current PHONE: [phone] oremerald Case or Applied Computer Science Professor Current PHONE: Unknown Michaela has no Care Guidelines for this patient. Chevy VISIT COUNT (12 MO.) 2 [facility] TOTAL 2 NOTE: Visits indicate total known visits. ED/UCC VISIT TRACKING (12 MO.) 07/15/2018 11:39 [facility] TYPE: Emergency COMPLAINT: - L FOOT PAIN/INJURY 07/13/2018 08:16 [facility] TYPE: Emergency COMPLAINT: - FALL INPATIENT VISIT TRACKING (12 MO.) 07/13/2018 08:17 [facility] TYPE: Medical Surgical COMPLAINT: - TIA [email or web address]
== END 2018-07-15 13:49 | disposition home or self-care (01) ==
LOC: ED 11:39
DX: S92.532A Displaced fracture of distal phalanx of left lesser toe(s), initial encounter for closed fracture (principal); F03.90 Unspecified dementia, unspecified severity, without behavioral disturbance, psychotic disturbance, mood disturbance, and anxiety; W18.30XA Fall on same level, unspecified, initial encounter; F17.200 Nicotine dependence, unspecified, uncomplicated; Z86.73 Personal history of transient ischemic attack (TIA), and cerebral infarction without residual deficits; Z79.82 Long term (current) use of aspirin; Z79.899 Other long term (current) drug therapy
CPT/HCPCS: 73630; 99283